=== PATIENT | male | born 1980 | race Caucasian/White ===

== ENCOUNTER 2022-04-20 22:10 | Emergency (ER) | payer SELFPAY ==
[2022-04-20 22:39] VITALS: BP 149/80; PULSE 110; RESP 16; TEMP 36.8; O2SAT 97; BMI 29.8
--- NOTE | 2022-04-20 22:55 | ED_ITS ---
HPI - Extremity Problem General: Chief complaint: Extremity Injury, Lower Stated complaint: LAC ON RIGHT FOOT Time Seen by Provider: 04/20/22 22:18 History of Present Illness: lwot Course Vital Signs: Vital signs: Vital Signs Temperature 98.2 F 04/20/22 22:39 Pulse Rate 110 H 04/20/22 22:39 Respiratory Rate 16 04/20/22 22:39 Blood Pressure 149/80 04/20/22 22:39 Pulse Oximetry 97 04/20/22 22:39 MDM - Extremity (Nontraumatic) Medical Decision Making \lwot Discharge Plan Discharge Patient Disposition: Home Clinical Impression: Laceration Condition: Stable Discharge Orders: Discharge ED (Routine); Ordered 04/20/22 Ordered By: Charley Zuleta Referrals: Shekhar Clements DO [Primary Care Provider] - Discharge Diet: Advance as tolerated Discharge Activity: Increase activity as tolerated Patient Instructions: Opioid Safety, Pain Management Activity Restrictions/Additional Instructions: Please keep wound clean and dry Return to ER with any worsening of conditions Coding Level of Care Code ED Activated Sludge Attendant for Juli Pfeiffer
== END 2022-04-20 23:27 | disposition home or self-care (01) ==
PROVIDERS: Emergency Provider Registered Nurse; PCP Family Medicine
DX: S91.311A Laceration without foreign body, right foot, initial encounter (principal); X58.XXXA Exposure to other specified factors, initial encounter
CPT/HCPCS: 99282

== ENCOUNTER 2022-05-20 18:38 | Emergency (ER) | payer SELFPAY ==
[2022-05-20 19:14] VITALS: BP 156/107; PULSE 98; RESP 18; TEMP 36.4; O2SAT 100; BMI 32.3
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
[2022-05-20] MEDS: tetanus-dipt-pertussis 0.5 mL SDV IM (19:52)
[2022-05-20] MEDS: lidocaine 2% INJ 20 mL INJECTION (20:40)
[2022-05-20 21:38] VITALS: BP 145/100; PULSE 96; RESP 16; O2SAT 97
== END 2022-05-20 21:40 | disposition home or self-care (01) ==
PROVIDERS: Emergency Provider Emergency Medicine
DX: S01.01XA Laceration without foreign body of scalp, initial encounter (principal); W22.8XXA Striking against or struck by other objects, initial encounter; Z23 Encounter for immunization
CPT/HCPCS: 12002; 70450; 90471; 90715; 99284